=== PATIENT | female | born 1975 | race American Indian/Alaskan Native ===

== ENCOUNTER 2020-10-30 17:11 | Emergency (ER) | payer SELFPAY ==
[2020-10-30 17:23] VITALS: BP 128/85
--- NOTE | 2020-10-30 18:38 | Event Note ---
ED Screening Note Date of service: 10/30/20 Time: 18:36 ED Screening Note: patient with no sig pmhx presents with c/o abnl vag bleeding She had a nl MC 10/14/20 She started bleeding again this past sunday. It was light at first but getting heavier; has soaked 3 pads in past 2 days. Associated symptoms -- weakness in legs, dizziness, abd cramps today She did not take a home preg test. She is not on BCP. She denies UTI, fever, chills, nausea, vomiting or bowel changes This initial assessment/diagnostic orders/clinical plan/treatment(s) is/are subject to change based on patients health status, clinical progression and re- assessment by fellow clinical providers in the ED. Further treatment and workup at subsequent clinical providers discretion. Patient/guardian urged not to elope from the ED as their condition may be serious if not clinically assessed and managed. Initial orders include: Labs/UA/hcg
[2020-10-30 18:59] LABS: Bilirubin,Urine NEG (Negative); Blood,Urine LG (Negative); Color,Urine Yellow (Yellow); Mucus,Urine FEW /HPF; RBC,Urine > 182.0 /HPF (0.0-6.0); Urobilinogen,Urine < 2.0 mg/dL (<2.0)
[2020-10-30 19:22] LABS: Basophils % (Auto) 0.4 % (0.0-1.8); Eosinophils # (Auto) 0.1 K/mm3 (0.0-0.4); Eosinophils % (Auto) 1.3 % (0.0-4.3); Hematocrit 31.3 % (30.3-42.9); Hemoglobin 9.9 gm/dl (10.1-14.3); Lymphocytes # (Auto) 1.7 K/mm3 (1.2-5.4); Lymphocytes % (Auto) 40.5 % (13.4-35.0); Mean Corpuscular HGB Conc 32 % (30-34); Mean Corpuscular Volume 73 fl (79-97); Monocytes # (Auto) 0.3 K/mm3 (0.0-0.8); Monocytes % (Auto) 7.2 % (0.0-7.3); Platelet Count 275 K/mm3 (140-440); Red Blood Count 4.28 M/mm3 (3.65-5.03); Red Cell Distribution Width 18.6 % (13.2-15.2)
[2020-10-30 19:37] LABS: Alanine Aminotransferase 17 units/L (7-56); Albumin 4.3 g/dL (3.9-5); BUN/Creatinine Ratio 12; Blood Urea Nitrogen 14 mg/dL (7-17); Calcium 9.2 mg/dL (8.4-10.2); Hemolysis Index 0
--- NOTE | 2020-10-30 20:15 | Emergency Department Report ---
ED Female HPI - General Chief complaint: Vaginal Bleeding Stated complaint: BLEEDING Time Seen by Provider: 10/30/20 19:45 Source: patient Mode of arrival: Ambulatory Limitations: No Limitations - History of Present Illness Initial comments: Patient is a 45-year-old female presents emergency room complaints of abnormal vaginal bleeding that began 4 days ago. She states initially started with spotting but then became slightly heavier. She states that she is used approximately three menstrual pads today. She denies any significant heavy bleeding or significant blood clots. She states that she had a normal menstrual cycle on 10/14/2020 and states it lasted approximately 6 days. She states that she usually has normal menstrual cycles. She states that she has not seen a retail associate since 2014 or had a Pap smear. She denies any abdominal pain, pelvic pain, fever, nausea, vomiting, diarrhea, urinary symptoms, abnormal vaginal discharge. No past medical history. No allergies to medications. No history of DVT/PE. She is a non-smoker. No cardiac history. - Related Data Previous Rx's Medication Instructions Recorded Last Taken Type Meclizine [Antivert] 25 mg PO TID PRN #20 tablet 11/12/15 Unknown Rx Ondansetron [Zofran ODT TAB] 8 mg PO Q8HR #20 tab.rapdis 11/13/15 Unknown Rx Docusate Sodium [Colace] 100 mg PO BID #60 capsule 10/30/20 Unknown Rx Ferrous Sulfate [Ferrous Sulfate 324 mg PO DAILY #30 tablet.dr 10/30/20 Unknown Rx 324 MG] medroxyPROGESTERone ACETATE 10 mg PO QDAY 10 Days #10 tablet 10/30/20 Unknown Rx [Provera] Allergies Allergy/AdvReac Type Severity Reaction Status Date / Time No Known Allergies Allergy Verified 11/12/15 15:32 ED Review of Systems ROS: Stated complaint: BLEEDING Other details as noted in HPI Comment: All other systems reviewed and negative ED Past Medical Hx - Past Medical History Hx Hypertension: Yes (WITH ) Hx Heart Attack/AMI: No Hx Congestive Heart Failure: No Hx Diabetes: No Hx Deep Vein Thrombosis: No Hx Liver Disease: No Hx Renal Disease: No Hx Sickle Cell Disease: No Hx Seizures: No Hx Asthma: No Hx COPD: No Hx HIV: No - Surgical History Additional Surgical History: X 4 - Social History Smoking Status: Never Smoker - Medications Home Medications: Home Medications Medication Instructions Recorded Confirmed Last Taken Type Meclizine [Antivert] 25 mg PO TID PRN #20 tablet 11/12/15 Unknown Rx Ondansetron [Zofran ODT TAB] 8 mg PO Q8HR #20 tab.rapdis 11/13/15 Unknown Rx Docusate Sodium [Colace] 100 mg PO BID #60 capsule 10/30/20 Unknown Rx Ferrous Sulfate [Ferrous Sulfate 324 mg PO DAILY #30 tablet.dr 10/30/20 Unknown Rx 324 MG] medroxyPROGESTERone ACETATE 10 mg PO QDAY 10 Days #10 tablet 10/30/20 Unknown Rx [Provera] ED Physical Exam - General Limitations: No Limitations General appearance: alert, in no apparent distress - Head Head exam: Present: atraumatic, normocephalic - Eye Eye exam: Present: normal appearance - ENT ENT exam: Present: mucous membranes moist - Respiratory Respiratory exam: Present: normal lung sounds bilaterally. Absent: respiratory distress, wheezes, rales, rhonchi, stridor, chest wall tenderness, accessory muscle use, decreased breath sounds, prolonged expiratory - Cardiovascular Cardiovascular Exam: Present: regular rate, normal rhythm, normal heart sounds. Absent: systolic murmur, diastolic murmur, rubs, gallop - GI/Abdominal GI/Abdominal exam: Present: soft, normal bowel sounds. Absent: distended, tenderness, guarding, rebound, rigid - Neurological Exam Neurological exam: Present: alert, oriented X3 - Psychiatric Psychiatric exam: Present: normal affect, normal mood - Skin Skin exam: Present: warm, dry, intact ED Course Vital Signs 10/30/20 17:19 Temperature 98.9 F Pulse Rate 82 Respiratory 18 Rate Blood Pressure 128/85 O2 Sat by Pulse 98 Oximetry ED Medical Decision Making - Lab Data Result diagrams: 10/30/20 19:00 10/30/20 19:00 Lab Results 10/30/20 10/30/20 10/30/20 Range/Units 19:00 19:00 19:00 WBC 4.3 L (4.5-11.0) K/mm3 RBC 4.28 (3.65-5.03) M/mm3 Hgb 9.9 L (10.1-14.3) gm/dl Hct 31.3 (30.3-42.9) % MCV 73 L (79-97) fl MCH 23 L (28-32) pg MCHC 32 (30-34) % RDW 18.6 H (13.2-15.2) % Plt Count 275 (140-440) K/mm3 Lymph % (Auto) 40.5 H (13.4-35.0) % [place] % (Auto) 7.2 (0.0-7.3) % Eos % (Auto) 1.3 (0.0-4.3) % Baso % (Auto) 0.4 (0.0-1.8) % Lymph # (Auto) 1.7 (1.2-5.4) K/mm3 [place] # (Auto) 0.3 (0.0-0.8) K/mm3 Eos # (Auto) 0.1 (0.0-0.4) K/mm3 Baso # (Auto) 0.0 (0.0-0.1) K/mm3 Seg Neutrophils % 50.6 (40.0-70.0) % Seg Neutrophils # 2.2 (1.8-7.7) K/mm3 Sodium 140 (137-145) mmol/L Potassium 3.9 (3.6-5.0) mmol/L Chloride 103.5 (98-107) mmol/L Carbon Dioxide 28 (22-30) mmol/L Anion Gap 12 mmol/L BUN 14 (7-17) mg/dL Creatinine 1.2 (0.6-1.2) mg/dL Estimated GFR 59 ml/min BUN/Creatinine Ratio 12 % Glucose 86 (65-100) mg/dL Calcium 9.2 (8.4-10.2) mg/dL Total Bilirubin < 0.20 (0.1-1.2) mg/dL AST 16 (5-40) units/L ALT 17 (7-56) units/L Alkaline Phosphatase 70 (35-129) units/L Total Protein 7.7 (6.3-8.2) g/dL Albumin 4.3 (3.9-5) g/dL Albumin/Globulin Ratio 1.3 % HCG, Qual Negative (Negative) Urine Color (Yellow) Urine Turbidity (Clear) Urine pH (5.0-7.0) Ur Specific Sarah (1.003-1.030) Urine Protein (Negative) mg/dL Urine Glucose (UA) (Negative) mg/dL Urine Ketones (Negative) mg/dL Urine Blood (Negative) Urine Nitrite (Negative) Urine Bilirubin (Negative) Urine Urobilinogen (<2.0) mg/dL Ur Leukocyte Esterase (Negative) Urine WBC (Auto) (0.0-6.0) /HPF Urine RBC (Auto) (0.0-6.0) /HPF U Epithel Cells (Auto) (0-13.0) /HPF Urine Mucus /HPF 10/30/20 Range/Units Unknown WBC (4.5-11.0) K/mm3 RBC (3.65-5.03) M/mm3 Hgb (10.1-14.3) gm/dl Hct (30.3-42.9) % MCV (79-97) fl MCH (28-32) pg MCHC (30-34) % RDW (13.2-15.2) % Plt Count (140-440) K/mm3 Lymph % (Auto) (13.4-35.0) % [place] % (Auto) (0.0-7.3) % Eos % (Auto) (0.0-4.3) % Baso % (Auto) (0.0-1.8) % Lymph # (Auto) (1.2-5.4) K/mm3 [place] # (Auto) (0.0-0.8) K/mm3 Eos # (Auto) (0.0-0.4) K/mm3 Baso # (Auto) (0.0-0.1) K/mm3 Seg Neutrophils % (40.0-70.0) % Seg Neutrophils # (1.8-7.7) K/mm3 Sodium (137-145) mmol/L Potassium (3.6-5.0) mmol/L Chloride (98-107) mmol/L Carbon Dioxide (22-30) mmol/L Anion Gap mmol/L BUN (7-17) mg/dL Creatinine (0.6-1.2) mg/dL Estimated GFR ml/min BUN/Creatinine Ratio % Glucose (65-100) mg/dL Calcium (8.4-10.2) mg/dL Total Bilirubin (0.1-1.2) mg/dL AST (5-40) units/L ALT (7-56) units/L Alkaline Phosphatase (35-129) units/L Total Protein (6.3-8.2) g/dL Albumin (3.9-5) g/dL Albumin/Globulin Ratio % HCG, Qual (Negative) Urine Color Yellow (Yellow) Urine Turbidity Slightly-cloudy (Clear) Urine pH 5.0 (5.0-7.0) Ur Specific Sarah 1.023 (1.003-1.030) Urine Protein 30 mg/dl (Negative) mg/dL Urine Glucose (UA) Neg (Negative) mg/dL Urine Ketones Neg (Negative) mg/dL Urine Blood Lg (Negative) Urine Nitrite Neg (Negative) Urine Bilirubin Neg (Negative) Urine Urobilinogen < 2.0 (<2.0) mg/dL Ur Leukocyte Esterase Neg (Negative) Urine WBC (Auto) 37.0 H (0.0-6.0) /HPF Urine RBC (Auto) > 182.0 (0.0-6.0) /HPF U Epithel Cells (Auto) 3.0 (0-13.0) /HPF Urine Mucus Few /HPF Vital Signs 10/30/20 17:19 Temperature 98.9 F Pulse Rate 82 Respiratory 18 Rate Blood Pressure 128/85 O2 Sat by Pulse 98 Oximetry - Medical Decision Making Patient is a 45-year-old female presents emergency room complaints of abnormal vaginal bleeding that began 4 days ago. She states initially started with spott ing but then became slightly heavier. She states that she is used approximately three menstrual pads today. She denies any significant heavy bleeding or significant blood clots. She states that she had a normal menstrual cycle on 10/14/2020 and states it lasted approximately 6 days. She states that she usually has normal menstrual cycles. She states that she has not seen a retail associate since 2014 or had a Pap smear. She denies any abdominal pain, pelvic pain, fever, nausea, vomiting, diarrhea, urinary symptoms, abnormal vaginal discharge. No past medical history. No allergies to medications. No history of DVT/PE. She is a non-smoker. No cardiac history. Vitals are normal. No abdominal tenderness on exam, no guarding, no rebound, no rigidity, normal bowel sounds, no peritoneal signs. Labs are stable. H&H is 9.9/31.3. hCG is negative. UA shows many red blood cells, there is small amount of white blood cells but no leukocyte esterase, no nitrites, patient is not having uri nary symptoms, do not suspect UTI, believe this is likely secondary to contamination. Patient has no significant signs of heavy vaginal bleeding. Patient does not have any significant contraindications to Provera. Offered patient Provera treatment, she states that she would like to take the medic ation. Patient given prescription for Provera, Colace, ferrous sulfate. Discussed with patient the importance of [facility] follow-up. Advised patient Please take medication as prescribed. Please increase your water intake. Please eat her iron rich diet. Follow-up with [facility] SALES [facility]AD[facility]. Return to emergency room for any worsening symptoms. - Differential Diagnosis AUB, fibroids, adenomyosis, hemorrhagic cyst, ectopic, endometriosis Critical care attestation.: If time is entered above; I have spent that time in minutes in the direct care of this critically ill patient, excluding procedure time. ED Disposition Clinical Impression: Abnormal uterine bleeding (AUB), Microcytic anemia Disposition: TO HOME OR SELFCARE Is pt being admited?: No Does the pt Need Aspirin: No Condition: Stable Instructions: Abnormal Uterine Bleeding, Iron-Rich Diet Additional Instructions: Please take medication as prescribed. Please increase your water intake. Laisha villarreal eat her iron rich diet. Follow-up with [facility] SALES [facility]. Return to emergency room for any worsening symptoms. Prescriptions: Docusate Sodium [Colace] 100 mg PO BID #60 capsule Ferrous Sulfate [Ferrous Sulfate 324 MG] 324 mg PO DAILY #30 tablet. medroxyPROGESTERone ACETATE [Provera] 10 mg PO QDAY 10 Days #10 tablet Referrals: [facility] [Provider Group] - 2-3 Days [facility] [Provider Group] - 2-3 Days [facility] [Provider Group] - 2-3 Days [facility] [Primary Care Provider] - 2-3 Days Time of Disposition: 20:13 Print Language: SLOVAK
== END 2020-10-30 20:20 | disposition home or self-care (01) ==
LOC: ED 17:11
DX: D50.9 Iron deficiency anemia, unspecified (principal); N93.9 Abnormal uterine and vaginal bleeding, unspecified; I10 Essential (primary) hypertension; Z79.899 Other long term (current) drug therapy; Z98.890 Other specified postprocedural states
CPT/HCPCS: 36415; 80053; 81001; 84703; 85025; 87086; 99283

== ENCOUNTER 2021-01-27 14:22 | Emergency (ER) | payer OTHER ==
[2021-01-27 15:02] VITALS: BP 144/99
[2021-01-27 17:13] LABS: Bilirubin,Urine NEG (Negative); Blood,Urine MOD (Negative); Color,Urine Yellow (Yellow); Mucus,Urine FEW /HPF; Protein,Urine <15 mg/dL mg/dL (Negative); RBC,Urine < 1.0 /HPF (0.0-6.0); Urobilinogen,Urine < 2.0 mg/dL (<2.0)
--- NOTE | 2021-01-27 17:28 | Ultrasound Report ---
ULTRASOUND OBSTETRIC INDICATION / CLINICAL INFORMATION: vaginal bleeding, 8 weeks . Clinical Gestational Age (GA) in weeks, days: 8, 5 TECHNIQUE: Transabdominal and Transvaginal. COMPARISON: None available. FINDINGS: No intrauterine is seen. Endometrial stripe measures 23 mm. Uterine fibroids are noted. ADNEXA: Right ovary is not visualized. The left ovary is unremarkable. FREE FLUID: None. ADDITIONAL FINDINGS: None. IMPRESSION: No intrauterine is seen. There are uterine fibroids. Correlation with serum beta hCG level is recommended. Follow-up ultrasound should be obtained as is clinically warranted. The left ovary is unremarkable. The right ovary is not visualized. No free fluid is seen. Signer Name: Nolan Pino MD Signed: 01/27/2021 5:23 PM Workstation Name: [id number]
[2021-01-27 18:02] LABS: Hematocrit 30.1 % (30.3-42.9); Hemoglobin 9.7 gm/dl (10.1-14.3); Mean Corpuscular HGB Conc 32 % (30-34); Mean Corpuscular Volume 73 fl (79-97); Platelet Count 298 K/mm3 (140-440); Red Blood Count 4.13 M/mm3 (3.65-5.03); Red Cell Distribution Width 18.5 % (13.2-15.2)
[2021-01-27 18:11] LABS: Alanine Aminotransferase 32 units/L (7-56); Albumin 3.9 g/dL (3.9-5); BUN/Creatinine Ratio 12; Blood Urea Nitrogen 11 mg/dL (7-17); Calcium 9.1 mg/dL (8.4-10.2); Hemolysis Index 6
[2021-01-27 19:10] LABS: Anisocytosis 1+; Hypochromasia 2+; Total Cells Counted 100
[2021-01-27 19:11] LABS: Platelet Estimate Consistent w Auto
--- NOTE | 2021-01-27 19:19 | Emergency Department Report ---
ED General Adult HPI - General Chief complaint: Vaginal Bleeding Stated complaint: 8WKS SPOTTING Time Seen by Provider: 01/27/21 18:25 Source: patient Mode of arrival: Ambulatory Limitations: No Limitations - History of Present Illness Initial comments: 45 y/o female pt (A1; LMP early November 2020) presents to the emergency department with complaints of 1 episode of vaginal bleeding occurring this morning. Patient states she is approximately 8 weeks by dates. She describes the amount of bleeding as "minimal spotting." She has soaked through less than 1 pad/tampon in the last 24 hours. This week was patient's first OB evaluation during this . She was seen 2 days ago in the office, at which time she was told to return the following week for further testing. Today, patient called her plant hr manager after she noticed the bleeding, who recommended she come to the emergency department for emergency sonographic evaluation. Patient experienced 1 spontaneous several years ago, followed by 5 full-term pregnancies. No recent fall, trauma, or injury. No known history of coagulopathy. Denies fever, chills, abdominal pain, pelvic pain, chest pain, shortness of breath, dizziness, weakness, syncope. Denies all other complaints at this time. - Related Data Previous Rx's Medication Instructions Recorded Last Taken Type Meclizine [Antivert] 25 mg PO TID PRN #20 tablet 11/12/15 Unknown Rx Ondansetron [Zofran ODT TAB] 8 mg PO Q8HR #20 tab.rapdis 11/13/15 Unknown Rx Docusate Sodium [Colace] 100 mg PO BID #60 capsule 10/30/20 Unknown Rx Ferrous Sulfate [Ferrous Sulfate 324 mg PO DAILY #30 tablet.dr 10/30/20 Unknown Rx 324 MG] medroxyPROGESTERone ACETATE 10 mg PO QDAY 10 Days #10 tablet 10/30/20 Unknown Rx [Provera] Allergies Allergy/AdvReac Type Severity Reaction Status Date / Time No Known Allergies Allergy Verified 11/12/15 15:32 ED Review of Systems ROS: Stated complaint: 8WKS SPOTTING Other details as noted in HPI Other: GENERAL: Negative for fever, chills, weight change, anorexia, fatigue. ENT: Negative for ear pain, difficulty hearing, sore throat, nasal congestion, epistaxis. CARDIOVASCULAR: Negative for chest pain, palpitations, lower extremity swelling. PULMONARY: Negative for cough, dyspnea, wheezing, orthopnea, cyanosis. GASTROINTESTINAL: Negative for abdominal pain, nausea, vomiting, diarrhea, constipation. GENITOURINARY: Positive for vaginal bleeding. MUSCULOSKELETAL: Negative for joint pain, joint swelling, myalgias, back pain, neck pain. NEUROLOGICAL: Negative for headache, seizure, syncope, paresthesias, weakness. INTEGUMENTARY: Negative for erythema, rash, diaphoresis, laceration, ecchymosis. HEMATOLOGICAL: Negative for hemoptysis, hematemesis, hematochezia, hematuria. PSYCHIATRIC: Negative for hallucinations, suicidal ideation, homicidal ideation, anxiety, depression. ED Past Medical Hx - Past Medical History Previous Medical History?: Yes Hx Hypertension: Yes (WITH ) Hx Heart Attack/AMI: No Hx Congestive Heart Failure: No Hx Diabetes: No Hx Deep Vein Thrombosis: No Hx Liver Disease: No Hx Renal Disease: No Hx Sickle Cell Disease: No Hx Seizures: No Hx Asthma: No Hx COPD: No Hx HIV: No - Surgical History Past Surgical History?: Yes Additional Surgical History: X 4 - Social History Smoking Status: Never Smoker - Medications Home Medications: Home Medications Medication Instructions Recorded Confirmed Last Taken Type Meclizine [Antivert] 25 mg PO TID PRN #20 tablet 11/12/15 Unknown Rx Ondansetron [Zofran ODT TAB] 8 mg PO Q8HR #20 tab.rapdis 11/13/15 Unknown Rx Docusate Sodium [Colace] 100 mg PO BID #60 capsule 10/30/20 Unknown Rx Ferrous Sulfate [Ferrous Sulfate 324 mg PO DAILY #30 tablet.dr 10/30/20 Unknown Rx 324 MG] medroxyPROGESTERone ACETATE 10 mg PO QDAY 10 Days #10 tablet 10/30/20 Unknown Rx [Provera] ED Physical Exam - General Limitations: No Limitations - Other Other exam information: General: Awake and alert. No acute distress. Head: Atraumatic, normocephalic. Eyes: EOMI. Pupils are equal and round. Normal sclera and conjunctiva. ENT: Oral mucosa is moist. Normal pharyngeal exam. Neck: Supple. No lymphadenopathy. Pulmonary: No respiratory distress. Clear to auscultation bilaterally. Cardiac: Regular rate and rhythm. Pulses are palpable and equal bilaterally. No lower extremity cyanosis or edema. Skin: Warm and dry. No rashes. Abdomen: Soft, non-tender, non-protuberant. No guarding, rigidity, or rebound. Bowel sounds are normal. No organomegaly or masses noted. Pelvic: Patient refused. Back: Normal alignment. No CVA tenderness. Extremities: Symmetrical. Full range of motion intact. Neurological: Alert and oriented, appropriately interactive, no focal deficits. Psych: Cooperative. Appropriate mood and affect. Speech is evenly metered. Thoug hts are logically construed. ED Course Vital Signs 01/27/21 15:01 Temperature 98.5 F Pulse Rate 82 Respiratory 16 Rate Blood Pressure 144/99 O2 Sat by Pulse 100 Oximetry ED Medical Decision Making - Lab Data Result diagrams: 01/27/21 17:39 01/27/21 17:39 - Radiology Data [facility] [address] [place] [address] Ultrasound Report Signed Patient: RADHA SHER MR#: [id number] : 1975 Acct:[id number] Age/Sex: 45 / F ADM Date: 01/27/21 Loc: ED Attending Dr: Ordering Physician: TARUN FALCON Date of Service: 01/27/21 Procedure(s): US OB transvaginal Accession Number(s): [id number] cc: TARUN FALCON ULTRASOUND OBSTETRIC INDICATION / CLINICAL INFORMATION: vaginal bleeding, 8 weeks . Clinical Gestational Age (GA) in weeks, days: 8, 5 TECHNIQUE: Transabdominal and Transvaginal. COMPARISON: None available. FINDINGS: No intrauterine is seen. Endometrial stripe measures 23 mm. Uterine fibroids are noted. ADNEXA: Right ovary is not visualized. The left ovary is unremarkable. FREE FLUID: None. ADDITIONAL FINDINGS: None. IMPRESSION: No intrauterine is seen. There are uterine fibroids. Correlation with serum beta hCG level is recommended. Follow-up ultrasound should be obtained as is clinically warranted. The left ovary is unremarkable. The right ovary is not visualized. No free fluid is seen. Signer Name: Nolan Pino MD Signed: 01/27/2021 5:23 PM Workstation Name: [id number] Transcribed By: SS Dictated By: Nolan Pino MD Electronically Authenticated By: Nolan Pino MD Signed Date/Time: 07/08/19 1722 DD/ 20 TD/TT: - Medical Decision Making Differential diagnosis including but not limited to: spontaneous , ectopic , implantation bleed, uterine fibroids, anemia On reevaluation, patient remains stable. Labs show hemoglobin of 9.7; review of past medical records indicates this value is consistent with patient's baseline. Urinalysis without evidence of infection. Beta hCG is 211; transvaginal ultrasound ordered by bioinformatics software engineer shows uterine fibroids without evidence of intrauterine . In the absence of tachycardia, hypotension, abdominal/pelvic pain and/or tenderness, there is low clinical suspicion for ruptured ectopic . Patient refused pelvic examination. Patient has no prior sonographic or laboratory results available for comparison however clinical presentation is concerning for spontaneous . Suspect is not viable. Case discussed with plant hr manager on-call for Dr. Cassidy, who agrees to evaluate patient in the clinic on February 01 for repeat sonogram and beta-hCG. Patient has been provided a copy of her results to take with her to her follow-up appointment. Patient expressed understanding and is agreeable to plan of care. Strict return precautions provided. Repeat exam is unremarkable and benign. History, exam, diagnostic testing, and current condition do not suggest worrisome pathology to warrant further testing, continued ED treatment, admission, or surgical evaluation at this point. Given the low probability of a significant medical illness, it would be more likely to result in harm than benefit to perform further testing at this stage. Discussed findings, presumptive diagnosis, need for follow-up and specific signs/symptoms that should prompt immediate return to the emergency department. Instructions were explained in detail to the patient in addition to giving written discharge information. Patient expressed understanding and was given the opportunity to ask questions, all of which were satisfactorily answered prior to discharge home. Critical care attestation.: If time is entered above; I have spent that time in minutes in the direct care of this critically ill patient, excluding procedure time. ED Disposition Clinical Impression: Threatened Disposition: -01 TO HOME OR SELFCARE Is pt being admited?: No Does the pt Need Aspirin: No Condition: Stable Instructions: Vaginal Bleeding During , First Trimester, [id number] Additional Instructions: Continue taking vitamins as previously instructed. Rest. Drink plenty of fluids. Increase your dietary intake of iron rich foods. Follow-up with Dr. Cassiyd on February 01 as previously scheduled. Bring a copy of today's results with you to your follow-up appointment. If you are unable to follow-up with Dr. Cassidy, please schedule an appointment with one of the other obstetricians listed below. Return to the emergency department immediately for new or worsening symptoms. Specifically, return to the emergency department immediately for fever, abdominal pain, pelvic pain, increased vaginal bleeding, loss of vaginal fluid, chest pain, shortness of breath, dizziness, loss of consciousness, or any other concerns. Referrals: MINDY EDUARDO MD [Staff Physician] - 3-5 Days LIANA BORREGO MD [Staff Physician] - 3-5 Days GLORIA FERNÁNDEZ MD [Staff Physician] - 3-5 Days Time of Disposition: 19:33
== END 2021-01-27 19:00 | disposition left against medical advice (07) ==
LOC: ED 14:22
DX: O20.0 Threatened abortion (principal); I10 Essential (primary) hypertension; Z3A.08 8 weeks gestation of pregnancy; Z98.890 Other specified postprocedural states; Z79.899 Other long term (current) drug therapy
CPT/HCPCS: 36415; 76801; 76817; 80053; 81001; 84702; 85007; 85025; 86900; 86901